=== PATIENT | female | born 1990 | race Caucasian/White ===

== ENCOUNTER 2016-11-11 17:27 | Observation (INO) | payer OTHER ==
[~2016-11-11] VITALS: Ht 162.6 cm; Wt 65.8 kg
[~2016-11-11 17:27] MED LIST: BIRTH CONTROL PILL PO; DOCU100C37 PO; IBUP-1780 PO; OXYC-465 PO; PNV1TABL9 PO; SULF1TAB38
--- OUTSIDE RECORDS SUMMARY | 2016-11-11 17:30 | XMS REPORT | Continuity of Care Document ---
Author Author [facility] Organization [facility] Address Unknown Phone Unavailable Support Name Relationship Address Phone DORADOJIMENA APRN Caregiver [facility] [address] [place] [address] ELE VILLANUEVA MD Caregiver [address] [place] [address] CHRISTINE KRISHNAMURTHY Next Of Kin [address] [place] [address] Insurance Providers Payer Name Policy Number Subscriber Name Relationship UMR [id number] Erika Krishnamurthy Self / Same As Patient Advance Directives Directive Response Recorded Date/Time Advance Directives No 09/24/16 10:00am Organ Donor Yes 09/24/16 10:00am Resuscitation Status Full Code 09/24/16 10:00am Chief Complaint and Reason for Visit Chief Complaint Chest Pain Reason for Visit [id number] Problems Active Problems Medical Problem Onset Date Status Pleuritic chest pain Unknown Acute TIUP - IAL Unknown Acute Medications Current Home Medications Medication Dose Units Route Directions Days/Qty Instructions Start Date Pnv Cmb#21/Iron/Folic Acid 1 Each 1 Each Oral Daily 09/20/16 Ibuprofen 800 Mg 800 Mg Oral Every 6 Hours 60 09/21/16 Oxycodone Hcl/Acetaminophen 1 Each 1-2 Tab Oral Every 4HRS as needed for Pain 60 09/21/16 Docusate Sodium 100 Mg 100 Mg Oral Twice A Day 60 09/21/16 Past Home Medications Medication Directions Ordered Status Trimethoprim/Sulfamethoxazole 1 Tab Tablet, 06/03/08 Discontinued [ Control Pill] , Oral Daily 10/07/10 Discontinued Social History Social History Problem Response Recorded Date/Time Alcohol Use Denies Use 09/24/2016 10:00am Recreational Drug Use No 09/24/2016 10:00am Recent Foreign Travel No 09/24/2016 10:00am Recent Infectious Disease Exposure No 09/24/2016 10:00am Hospitalization with Isolation Denies 09/24/2016 10:00am Sexually Transmitted Disease No 09/24/2016 10:00am Smoking Status Former Smoker 09/24/2016 10:00am Type Used Cigarettes 09/22/2016 6:49pm Recent Hopitalizations Y CHILD 09/24/2016 10:00am Sexually Transmitted Disease No 09/24/2016 10:00am Hospitalization with Isolation Denies 09/24/2016 10:00am Hx Sexually Transmitted Disorders No 10/08/2010 6:15am Query Response Start Date Stop Date Smoking Status Former Smoker Hospital Discharge Instructions No hospital discharge instructions. Plan of Care Discharge Date 09/24/16 12:05pm Disposition 01 HOME, SELF-CARE Condition at Discharge Stable Instructions/Education Provided Pleuritic Chest Pain (DC) Prescriptions See Medication Section Additional Instructions/Education 1. Follow-up with your regular doctor later this week or next week 2. Ibuprofen as needed for pain 3. Return to ER for any worsening or other concerns All discharge instructions reviewed with patient and/or family. Voiced understanding. Functional Status No functional status results. Allergies, Adverse Reactions, Alerts Allergen Type Severity Reaction Status Last Updated NKANo Known Allergies Allergy Mild Active 06/03/08 Immunizations Name Given Type DTaP-Tetanus, Dipth, Pertuss P/F (Boostrix) 09/22/16 Administered FLU TRIvalent 5 years - Adult 09/20/16 Administered Measles/Mumps/Rubella Vaccine Live 09/22/16 Administered Vital Signs Acute Vital Signs Vital Response Date/Time Temperature (Fahrenheit) 97.8 degrees F (97.6 - 99.5) 09/24/2016 10:00am Temperature (Calculated Celsius) 36.98660 degrees C (36.4 - 37.5) 09/24/2016 10:00am Temperature Source Tympanic 09/21/2016 9:53pm Pulse Rate (adult) 68 bpm (60 - 90) 09/24/2016 11:33am Respiratory Rate 18 bpm (12 - 24) 09/24/2016 11:33am O2 Sat by Pulse Oximetry 99 % (88 - 100) 09/24/2016 11:33am Blood Pressure 124/85 mm Hg 09/24/2016 11:33am Blood Pressure Mean 111 mm Hg 09/24/2016 10:00am Pain Numeric Pain Scale 1 09/24/2016 11:33am Height (Feet) 5 feet 09/24/2016 10:00am Height (Inches) 5 inches 09/24/2016 10:00am Height (Calculated Centimeters) 165.286614 cm 09/24/2016 10:00am Weight (Pounds) 140 pounds 09/24/2016 10:00am Weight (Ounces) 0.4 oz 09/20/2016 6:23am Weight (Calculated Grams) 19470.82 gm 09/20/2016 6:23am Weight (Calculated Kilograms) 63.807441 kilograms 09/24/2016 10:00am Calculated BMI 29.7 09/20/2016 6:23am Capillary Refill Capillary Refill Less Than 3 Seconds 09/24/2016 10:00am Capillary Refill Capillary Refill Less Than 3 Seconds 09/24/2016 10:00am Results Laboratory Results Test Name Result Units Flags Reference Collection Date/Time Result Date/ Time Comments White Blood Count 10.7 10^3/uL 4.3-11.0 09/20/2016 6:50am 09/20/2016 7: 04am Red Blood Count 4.19 10^6/uL L 4.35-5.85 09/20/2016 6:50am 09/20/2016 7: 04am Hemoglobin 12.6 G/DL 11.5-16.0 09/20/2016 6:50am 09/20/2016 7:04am Hematocrit 37 % 35-52 09/20/2016 6:50am 09/20/2016 7:04am Mean Corpuscular Volume 88 FL 80-99 09/20/2016 6:50am 09/20/2016 7: 04am Mean Corpuscular Hemoglobin 30 PG 25-34 09/20/2016 6:50am 09/20/2016 7: 04am Mean Corpuscular Hemoglobin Concent 34 G/DL 32-36 09/20/2016 6:50am 12/2015 7:04am Red Cell Distribution Width 13.6 % 10.0-14.5 09/20/2016 6:50am 2015 7:04am Platelet Count 175 10^3/uL 130-400 09/20/2016 6:50am 09/20/2016 7:04am Mean Platelet Volume 9.9 FL 7.4-10.4 09/20/2016 6:50am 09/20/2016 7: 04am Neutrophils (%) (Auto) 82 % H 42-75 09/20/2016 6:50am 09/20/2016 7:04am Lymphocytes (%) (Auto) 11 % L 12-44 09/20/2016 6:50am 09/20/2016 7:04am Monocytes (%) (Auto) 6 % 0-12 09/20/2016 6:50am 09/20/2016 7:04am Eosinophils (%) (Auto) 0 % 0-10 09/20/2016 6:50am 09/20/2016 7:04am Basophils (%) (Auto) 0 % 0-10 09/20/2016 6:50am 09/20/2016 7:04am Neutrophils # (Auto) 8.8 X 10^3 H 1.8-7.8 09/20/2016 6:50am 09/20/2016 7: 04am Lymphocytes # (Auto) 1.2 X 10^3 1.0-4.0 09/20/2016 6:50am 09/20/2016 7: 04am Monocytes # (Auto) 0.6 X 10^3 0.0-1.0 09/20/2016 6:50am 09/20/2016 7: 04am Eosinophils # (Auto) 0.0 10^3/uL 0.0-0.3 09/20/2016 6:50am 09/20/2016 7 :04am Basophils # (Auto) 0.0 10^3/uL 0.0-0.1 09/20/2016 6:50am 09/20/2016 7: 04am Pending Laboratory Results Test Name Collection Date/Time Procedures Procedure Status Date Provider(s) DELIVERY OF PRODUCTS OF CONCEPTION, EXTERNAL APPROACH Completed 09/20/16 SILAS MELO MD DIVISION OF FEMALE PERINEUM, EXTERNAL APPROACH Completed 09/20/16 SILAS MELO MD Tracing only of electrocardiogram Active 09/24/16 ELE VILLANUEVA MD Encounters Encounter Location Arrival/Admit Date Discharge/Depart Date Attending Provider Departed Emergency Room [facility] 09/24/16 10:02am 05/03 12:05pm JIMENA DORADO APRN Discharged Inpatient [facility] 09/20/16 6:39am 4:15pm SILAS MELO MD Recent Diagnosis
[2016-11-11] MEDS ORDERED: D5 LR IV SOLUTION 1,000 ML IV ONE (17:43)
[2016-11-11] MEDS ORDERED: BUTORPHANOL INJ 2 MG/ML (STADOL) VIAL IV PRN (18:00)
--- NOTE | 2016-11-11 18:04 | History & Physical ---
History and Physical this patient is a 26-year-old white female who is several half weeks . She has been breast-feeding exclusively. About 1 week ago she began experiencing some discomfort in her left breast, by the weekend that had progressed to a fairly moderate pain and she was seen in the urgent care clinic. She was diagnosed with a mastitis and treated with azithromycin. Her pain and symptoms have progressed plan. She has been unable to keep down pain medication. He called my office yesterday and I changed her from the azithromycin to dicloxacillin 500 mg 4 times a day. Overnight her pain has worsened. She is unable to breast-feed. She is unable to pump. He is almost unable to walk due to her left breast pain. she was seen in my clinic this afternoon. He was found to have a fairly diffuse left breast mastitis. There was no clear evidence of an abscess. Limited ultrasound my office showed no abscess pocket. Culture of the breast discharge was obtained. Patient is now been admitted for observation for IV pain medication IV fluids and IV antibiotics and supportive care. Plan is to try to decompress the engorgement of the left breast, find a pain medication she can tolerate orally, bring her symptoms under control and then discharge her home for outpatient management allergies are none Medications are dicloxacillin 500 mg 4 times a day started yesterday Percocet when necessary Motrin when necessary past medical history, past surgical history, obstetric history, family histories and social histories are per her recent antepartum record HEENT exam is normal. Patient does appear uncomfortable. Neck is supple no lymphadenopathy no thyromegaly Breast exam shows a tense engorged left breast with diffuse cellulitis particularly from the or to 9 or 10 o'clock position. There is no palpable abscess. There is some induration and diffuse erythema across the area described. There is minimal discharge from the nipple. The breast is fairly markedly tender to touch or palpation Abdomen is benign Extremities show no clubbing or cyanosis. There is no Homans sign lab is pending Assessment and plan severe left mastitis with symptoms progressing in spite of antibiotics. This patient's presentation would be concerning for an MRSA mastitis patient has been started on vancomycin 30 mg/kg per day divided into 3 doses. We will also prescribe IV fluids, IV analgesics, anti-nausea medicine as necessary, and supportive care. We recommend bumping her nursing to decompress the breast as well. severe left mastitis Allergies and Home Medications Allergies Coded Allergies: NKANo Known Allergies (Verified Allergy, Mild, 06/03/08) Home Medications Docusate Sodium 100 Mg Capsule #60 100 MG PO BID Prescribed by: SILAS EAST on 09/21/16 09 Ibuprofen 800 Mg Tablet #60 800 MG PO Q6H Prescribed by: SILAS EAST on 09/21/16 0945 Oxycodone HCl/Acetaminophen 1 Each Tablet #60 1-2 TAB PO Q4H PRN PRN PAIN Prescribed by: SILAS EAST on 09/21/16 0945 Pnv Cmb#21/Iron/Folic Acid 1 Each Tablet 1 EACH PO DAILY (Reported) SILAS MELO MD Nov 11, 2016 6:04 pm
[2016-11-11] MEDS: D5 LR IV SOLUTION 1,000 ML IV SCH (18:10)
[2016-11-11 18:15] VITALS: BP 128/86
[2016-11-11 18:24] LABS: BASOPHILS % (AUTO) 0 % (0-10); EOSINOPHILS # (AUTO) 0.3 10^3/uL (0.0-0.3); EOSINOPHILS % (AUTO) 2 % (0-10); LYMPHOCYTES # (AUTO) 2.4 X 10^3 (1.0-4.0); LYMPHOCYTES % (AUTO) 14 % (12-44); MEAN CORPUSCULAR HEMOGLOBIN 29 PG (25-34); MEAN CORPUSCULAR HGB CONC 34 G/DL (32-36); MEAN CORPUSCULAR VOLUME 87 FL (80-99); MONOCYTES # (AUTO) 1.3 X 10^3 (0.0-1.0); MONOCYTES % (AUTO) 8 % (0-12); NEUTROPHILS # (AUTO) 12.9 X 10^3 (1.8-7.8); NEUTROPHILS % (AUTO) 76 % (42-75); PLATELET COUNT 279 10^3/uL (130-400); RED BLOOD COUNT 4.19 10^6/uL (4.35-5.85); RED CELL DISTRIBUTION WIDTH 12.6 % (10.0-14.5); WHITE BLOOD COUNT 16.9 10^3/uL (4.3-11.0)
[2016-11-11] MEDS ORDERED: VANCOMYCIN 1250 MG/NS 250 ML IVPB IV NR ×2 (18:30)
[2016-11-11 18:39] LABS: BAND NEUTROPHILS 8 %; LYMPHOCYTES % (MANUAL) 13 %; NEUTROPHILS % (MANUAL) 69 %
[2016-11-11 18:40] LABS: BASOPHILS % (MANUAL) 0 %; EOSINOPHILS % (MANUAL) 1 %
[2016-11-11 19:10] LABS: ANION GAP 13 MMOL/L (5-14); BLOOD UREA NITROGEN 7 MG/DL (7-18); BUN/CREATININE RATIO 10; CARBON DIOXIDE 19 MMOL/L (21-32); CHLORIDE 108 MMOL/L (98-107); CREATININE SERUM 0.72 MG/DL (0.60-1.30); GFR ESTIMATED > 60; GLUCOSE 72 MG/DL (70-105); POTASSIUM 3.5 MMOL/L (3.6-5.0); SODIUM 140 MMOL/L (135-145)
[2016-11-11] MEDS ORDERED: DICL500C PO (19:18)
[2016-11-11] MEDS ORDERED: LECI400C PO (19:18)
[2016-11-11 19:35] VITALS: BP 145/90
[2016-11-11] MEDS ORDERED: diphenhydrAMINE 50 MG/ML INJ (BENADRYL) IVP ONE (19:45)
[2016-11-11 19:50] VITALS: BP 144/91
[2016-11-11] MEDS ORDERED: FLU TRIvalent (5 YOA+) 2016-17 (AFLURIA) 0.5 ML IM ONE (20:15)
[2016-11-11] MEDS: KETOROLAC 30 MG/ML VIAL IVP PRN (20:37)
[2016-11-11] MEDS ORDERED: VANCOMYCIN INJECTION 0.1 MG in NS (IVPB) 250 ML IV SCH ×4 (22:00)
[2016-11-11] MEDS: METOCLOPRAMIDE 10 MG (REGLAN) TAB PO SCH (23:01)
[2016-11-11] MEDS: APAP 300 MG/CODEINE 30 MG (TYLENOL #3) TAB PO PRN (23:01)
[2016-11-12] VITALS (7 sets, daily range): BP systolic 107–133; BP diastolic 68–92
[2016-11-12] MEDS: D5 LR IV SOLUTION 1,000 ML IV SCH ×3 (01:30→18:40)
[2016-11-12] MEDS: VANCOMYCIN 750 MG/NS 250 ML IVPB IV SCH ×4 (02:45→11:23)
[2016-11-12] MEDS: APAP 300 MG/CODEINE 30 MG (TYLENOL #3) TAB PO PRN ×3 (04:41→18:46)
[2016-11-12] MEDS: METOCLOPRAMIDE 10 MG (REGLAN) TAB PO SCH ×4 (05:30→19:00)
[2016-11-12] MEDS: KETOROLAC 30 MG/ML VIAL IVP PRN ×3 (07:23→21:51)
--- NOTE | 2016-11-12 07:39 | Progress Note-Standard ---
Standard Progress Note Progress Notes/Assess & Plan Progress/Assessment & Plan patient complains of persistent pain in left breast that is generally well controlled with pain medication. She continues to pump and has had an outside labs and a half each time she pumps. Patient denies nausea. Laboratory Tests Test 11/11/16 18:05 11/11/16 18:46 Range/Units Band Neutrophils 8 % Basophils # (Auto) 0.0 0.0-0.1 10^3/uL Basophils % (Manual) 0 % Basophils (%) (Auto) 0 0-10 % Blood Morphology Comment NORMAL Eosinophils # (Auto) 0.3 0.0-0.3 10^3/uL Eosinophils % (Manual) 1 % Eosinophils (%) (Auto) 2 0-10 % Hematocrit 36 35-52 % Hemoglobin 12.3 11.5-16.0 G/DL Lymphocytes # (Auto) 2.4 1.0-4.0 X 10^3 Lymphocytes % (Manual) 13 % Lymphocytes (%) (Auto) 14 12-44 % Mean Corpuscular Hemoglobin 29 25-34 PG Mean Corpuscular Hemoglobin Concent 34 32-36 G/DL Mean Corpuscular Volume 87 80-99 FL Mean Platelet Volume 9.0 7.4-10.4 FL Monocytes # (Auto) 1.3 H 0.0-1.0 X 10^3 Monocytes % (Manual) 9 % Monocytes (%) (Auto) 8 0-12 % Neutrophils # (Auto) 12.9 H 1.8-7.8 X 10^3 Neutrophils % (Manual) 69 % Neutrophils (%) (Auto) 76 H 42-75 % Platelet Count 279 130-400 10^3/uL Red Blood Count 4.19 L 4.35-5.85 10^6/uL Red Cell Distribution Width 12.6 10.0-14.5 % White Blood Count 16.9 H 4.3-11.0 10^3/uL Anion Gap 13 5-14 MMOL/L BUN/Creatinine Ratio 10 Blood Urea Nitrogen 7 7-18 MG/DL Calcium Level 9.0 8.5-10.1 MG/DL Carbon Dioxide Level 19 L 21-32 MMOL/L Chloride Level 108 H 98-107 MMOL/L Creatinine 0.72 0.60-1.30 MG/DL Estimat Glomerular Filtration Rate > 60 Glucose Level 72 70-105 MG/DL Potassium Level 3.5 L 3.6-5.0 MMOL/L Sodium Level 140 135-145 MMOL/L Admit labs showed white count 16.9 Physical exam is essentially stable from admission. The left breast seems to have notably less erythema but is still edematous and somewhat indurated Assessment and plan left mastitis on vancomycin . We'll obtain an ultrasound of the left breast for evaluation for an abscess. If her temperature spikes 201 again we'll go ahead and obtain blood cultures. We'll recheck her CBC at noon. Culture from the left breast [facility] and that will be followed up SILAS MELO MD Nov 12, 2016 7:39 am
--- NOTE | 2016-11-12 09:17 | Diagnostic Imaging Report ---
EXAMINATION: Ultrasound of the left breast. INDICATION: Left breast pain. COMPARISON: There are no prior studies available for comparison. PERSONAL HISTORY: Reportedly, there is clinical concern regarding an abscess. FINDINGS: On this exam, there is indeed a 5.5 x 4.2 x 5.4 cm hypoechoic area with internal echoes in the 6 o'clock position of the left breast. This appearance does suggest an abscess. No other abnormality is identified. IMPRESSION: 1. There is a sizable 5.5 x 4.2 x 5.4 cm abscess in the 6 o'clock position of the left breast. 2. These results were called to Dr. Osmel Wick. Dictated by: Dictated on workstation # [id number]
[2016-11-12] MEDS ORDERED: LIDOCAINE 1% INJ 20 ML (XYLOCAINE) VIAL ONE (09:39)
[2016-11-12] MEDS ORDERED: fentaNYL INJECTION 100 MCG/2 ML AMP ONE (10:10)
[2016-11-12 10:15] LABS: INR 1.2 (0.8-1.4); PROTHROMBIN TIME PATIENT 14.7 SEC (12.2-14.7)
[2016-11-12] MEDS ORDERED: oxyCODONE/APAP 10/325MG (PERCOCET 10) TABLET PO PRN (11:45)
[2016-11-12] MEDS ORDERED: LIDOCAINE 1% INJ 20 ML (XYLOCAINE) VIAL INJ ONE (11:45)
[2016-11-12] MEDS ORDERED: fentaNYL INJECTION 100 MCG/2 ML AMP IVP ONE (11:45)
[2016-11-12 12:08] LABS: BASOPHILS % (AUTO) 0 % (0-10); EOSINOPHILS # (AUTO) 0.2 10^3/uL (0.0-0.3); EOSINOPHILS % (AUTO) 2 % (0-10); LYMPHOCYTES # (AUTO) 1.5 X 10^3 (1.0-4.0); LYMPHOCYTES % (AUTO) 12 % (12-44); MEAN CORPUSCULAR HEMOGLOBIN 30 PG (25-34); MEAN CORPUSCULAR HGB CONC 34 G/DL (32-36); MEAN CORPUSCULAR VOLUME 88 FL (80-99); MEAN PLATELET VOLUME 8.5 FL (7.4-10.4); MONOCYTES # (AUTO) 1.1 X 10^3 (0.0-1.0); MONOCYTES % (AUTO) 9 % (0-12); NEUTROPHILS # (AUTO) 9.6 X 10^3 (1.8-7.8); NEUTROPHILS % (AUTO) 77 % (42-75); PLATELET COUNT 251 10^3/uL (130-400); RED BLOOD COUNT 3.97 10^6/uL (4.35-5.85); RED CELL DISTRIBUTION WIDTH 12.8 % (10.0-14.5); WHITE BLOOD COUNT 12.5 10^3/uL (4.3-11.0)
--- NOTE | 2016-11-12 16:14 | Progress Note-Standard ---
Standard Progress Note Progress Notes/Assess & Plan Progress/Assessment & Plan patient complains of persistent pain in left breast that is generally well controlled with pain medication. She continues to pump and has had an outside labs and a half each time she pumps. Patient denies nausea. Laboratory Tests Test 11/11/16 18:05 11/11/16 18:46 Range/Units Band Neutrophils 8 % Basophils # (Auto) 0.0 0.0-0.1 10^3/uL Basophils % (Manual) 0 % Basophils (%) (Auto) 0 0-10 % Blood Morphology Comment NORMAL Eosinophils # (Auto) 0.3 0.0-0.3 10^3/uL Eosinophils % (Manual) 1 % Eosinophils (%) (Auto) 2 0-10 % Hematocrit 36 35-52 % Hemoglobin 12.3 11.5-16.0 G/DL Lymphocytes # (Auto) 2.4 1.0-4.0 X 10^3 Lymphocytes % (Manual) 13 % Lymphocytes (%) (Auto) 14 12-44 % Mean Corpuscular Hemoglobin 29 25-34 PG Mean Corpuscular Hemoglobin Concent 34 32-36 G/DL Mean Corpuscular Volume 87 80-99 FL Mean Platelet Volume 9.0 7.4-10.4 FL Monocytes # (Auto) 1.3 H 0.0-1.0 X 10^3 Monocytes % (Manual) 9 % Monocytes (%) (Auto) 8 0-12 % Neutrophils # (Auto) 12.9 H 1.8-7.8 X 10^3 Neutrophils % (Manual) 69 % Neutrophils (%) (Auto) 76 H 42-75 % Platelet Count 279 130-400 10^3/uL Red Blood Count 4.19 L 4.35-5.85 10^6/uL Red Cell Distribution Width 12.6 10.0-14.5 % White Blood Count 16.9 H 4.3-11.0 10^3/uL Anion Gap 13 5-14 MMOL/L BUN/Creatinine Ratio 10 Blood Urea Nitrogen 7 7-18 MG/DL Calcium Level 9.0 8.5-10.1 MG/DL Carbon Dioxide Level 19 L 21-32 MMOL/L Chloride Level 108 H 98-107 MMOL/L Creatinine 0.72 0.60-1.30 MG/DL Estimat Glomerular Filtration Rate > 60 Glucose Level 72 70-105 MG/DL Potassium Level 3.5 L 3.6-5.0 MMOL/L Sodium Level 140 135-145 MMOL/L Admit labs showed white count 16.9 Physical exam is essentially stable from admission. The left breast seems to have notably less erythema but is still edematous and somewhat indurated Assessment and plan left mastitis on vancomycin . We'll obtain an ultrasound of the left breast for evaluation for an abscess. If her temperature spikes 201 again we'll go ahead and obtain blood cultures. We'll recheck her CBC at noon. Culture from the left breast with attaining clinic and that will be followed up Laboratory Tests 11/11/16 18:05 11/11/16 18:46 11/12/16 12:01 Vital Signs Date Time Temp Pulse Resp B/P Pulse Ox O2 Delivery O2 Flow Rate FiO2 11/12/16 07:35 101.3 100 18 131/83 98 Room Air 11/12/16 05:36 99.8 93 16 126/78 Room Air 11/12/16 04:41 100.9 11/12/16 04:41 100.9 11/12/16 02:46 99.3 11/12/16 00:30 98.8 88 18 107/68 Room Air 11/11/16 22:20 99.4 11/11/16 21:30 100.7 11/11/16 21:11 100.7 11/11/16 21:07 100.7 11/11/16 20:37 101.0 11/11/16 20:30 101.0 11/11/16 19:50 100.0 114 20 144/91 99 Room Air 11/11/16 19:35 100.6 125 20 145/90 100 Room Air 11/11/16 18:15 100.4 97 18 128/86 100 Room Air I & O 11/12/16 07:00 Intake Total 1260 ml Balance 1260 ml Continue current mgmt as patient is symptomatically improved. SILAS MELO MD Nov 12, 2016 4:13 pm
[2016-11-12] MEDS ORDERED: TROUGH ORDER-PHARMACY XX NR (18:00)
[2016-11-12] MEDS: VANCOMYCIN 1 GM/NS 250 ML IVPB IV SCH ×2 (19:52)
[2016-11-13] MEDS: APAP 300 MG/CODEINE 30 MG (TYLENOL #3) TAB PO PRN ×4 (00:17→13:54)
[2016-11-13] MEDS: D5 LR IV SOLUTION 1,000 ML IV SCH ×3 (02:37→11:44)
[2016-11-13] MEDS: KETOROLAC 30 MG/ML VIAL IVP PRN ×3 (03:25→16:51)
[2016-11-13] MEDS: VANCOMYCIN 1 GM/NS 250 ML IVPB IV SCH ×4 (03:26→11:37)
[2016-11-13 04:06] VITALS: BP 126/79
[2016-11-13] MEDS: METOCLOPRAMIDE 10 MG (REGLAN) TAB PO SCH ×2 (04:13→07:41)
--- NOTE | 2016-11-13 07:40 | Progress Note-Standard ---
Standard Progress Note Progress Notes/Assess & Plan Progress/Assessment & Plan patient complains of persistent pain in left breast that is generally well controlled with pain medication. She continues to pump and has had an outside labs and a half each time she pumps. Patient denies nausea. Laboratory Tests Test 11/11/16 18:05 11/11/16 18:46 Range/Units Band Neutrophils 8 % Basophils # (Auto) 0.0 0.0-0.1 10^3/uL Basophils % (Manual) 0 % Basophils (%) (Auto) 0 0-10 % Blood Morphology Comment NORMAL Eosinophils # (Auto) 0.3 0.0-0.3 10^3/uL Eosinophils % (Manual) 1 % Eosinophils (%) (Auto) 2 0-10 % Hematocrit 36 35-52 % Hemoglobin 12.3 11.5-16.0 G/DL Lymphocytes # (Auto) 2.4 1.0-4.0 X 10^3 Lymphocytes % (Manual) 13 % Lymphocytes (%) (Auto) 14 12-44 % Mean Corpuscular Hemoglobin 29 25-34 PG Mean Corpuscular Hemoglobin Concent 34 32-36 G/DL Mean Corpuscular Volume 87 80-99 FL Mean Platelet Volume 9.0 7.4-10.4 FL Monocytes # (Auto) 1.3 H 0.0-1.0 X 10^3 Monocytes % (Manual) 9 % Monocytes (%) (Auto) 8 0-12 % Neutrophils # (Auto) 12.9 H 1.8-7.8 X 10^3 Neutrophils % (Manual) 69 % Neutrophils (%) (Auto) 76 H 42-75 % Platelet Count 279 130-400 10^3/uL Red Blood Count 4.19 L 4.35-5.85 10^6/uL Red Cell Distribution Width 12.6 10.0-14.5 % White Blood Count 16.9 H 4.3-11.0 10^3/uL Anion Gap 13 5-14 MMOL/L BUN/Creatinine Ratio 10 Blood Urea Nitrogen 7 7-18 MG/DL Calcium Level 9.0 8.5-10.1 MG/DL Carbon Dioxide Level 19 L 21-32 MMOL/L Chloride Level 108 H 98-107 MMOL/L Creatinine 0.72 0.60-1.30 MG/DL Estimat Glomerular Filtration Rate > 60 Glucose Level 72 70-105 MG/DL Potassium Level 3.5 L 3.6-5.0 MMOL/L Sodium Level 140 135-145 MMOL/L Admit labs showed white count 16.9 Physical exam is essentially stable from admission. The left breast seems to have notably less erythema but is still edematous and somewhat indurated Assessment and plan left mastitis on vancomycin . We'll obtain an ultrasound of the left breast for evaluation for an abscess. If her temperature spikes 201 again we'll go ahead and obtain blood cultures. We'll recheck her CBC at noon. Culture from the left breast with attaining clinic and that will be followed up Laboratory Tests 11/11/16 18:05 11/11/16 18:46 11/12/16 12:01 Vital Signs Date Time Temp Pulse Resp B/P Pulse Ox O2 Delivery O2 Flow Rate FiO2 11/12/16 07:35 101.3 100 18 131/83 98 Room Air 11/12/16 05:36 99.8 93 16 126/78 Room Air 11/12/16 04:41 100.9 11/12/16 04:41 100.9 11/12/16 02:46 99.3 11/12/16 00:30 98.8 88 18 107/68 Room Air 11/11/16 22:20 99.4 11/11/16 21:30 100.7 11/11/16 21:11 100.7 11/11/16 21:07 100.7 11/11/16 20:37 101.0 11/11/16 20:30 101.0 11/11/16 19:50 100.0 114 20 144/91 99 Room Air 11/11/16 19:35 100.6 125 20 145/90 100 Room Air 11/11/16 18:15 100.4 97 18 128/86 100 Room Air I & O 11/12/16 07:00 Intake Total 1260 ml Balance 1260 ml Continue current mgmt as patient is symptomatically improved. November 13, 2016 Patient is generally without complaint. Pain is well controlled with oral medication. Drain output from the left breast has dramatically decreased. Patient is able to pop and no express milk from the left breast to minimize engorgement. Vital Signs Date Time Temp Pulse Resp B/P Pulse Ox O2 Delivery O2 Flow Rate FiO2 11/13/16 04:06 98.6 86 18 126/79 98 Room Air 11/12/16 23:18 98.9 78 18 119/76 97 Room Air 11/12/16 20:00 99.6 82 18 133/92 99 Room Air 11/12/16 16:00 99.4 79 18 120/80 98 Room Air 11/12/16 14:15 99.8 11/12/16 11:30 100.0 91 18 131/80 98 Room Air I & O 11/13/16 07:00 Intake Total 3350 ml Output Total 85 ml Balance 3265 ml Patient is afebrile now for the past 24 hours Left breast erythema has decreased somewhat. left breast tenderness is markedly decreased. assessment and plan left breast mastitis with abscess. Abscess had been drained via catheter placed by radiology. Patient is symptomatically improved. Cultures of the abscess are pending. We will continue the vancomycin through the day and continue supportive care. With continued improvement through the day we can consider discharge this evening Final Diagnosis left breast mastitis with abscess SILAS MELO MD Nov 13, 2016 07:40
[2016-11-13 07:45] VITALS: BP 127/84
--- NOTE | 2016-11-13 09:37 | Diagnostic Imaging Report ---
EXAMINATION: Ultrasound left breast limited. INDICATION: Abscess The previous left breast ultrasound exam performed on 11/12/16 noted a 5.5 x 4.2 x 5.4 CM. Hypoechoic area with internal echoes in the 6 o'clock position of the left breast. This finding was felt to represent an abscess. Subsequently an ultrasound-guided percutaneous drainage catheter was inserted into the abscess catheter. On this exam, the area of abnormal echogenicity in the 6 o'clock position left breast seen previously is again visualized although it has decreased in size. This area now measures 2.9 x 3.6 x 3.4 CM. There appears to be a little fluid still present in this area and this area of abnormal echogenicity may be related to debris and/or infected tissue alone. The drainage catheter is still evident. IMPRESSION: 1. The abscess in the 6 clock position left breast has decreased in size. There appears to be very little fluid still present within the abscess. The drainage catheter is still visualized. 2. These results were discussed with Dr. Wick. Dictated by: Dictated on workstation # [id number]
--- NOTE | 2016-11-13 10:01 | Diagnostic Imaging Report ---
EXAM: Ultrasound guided percutaneous transcatheter insertion. INDICATION: Left breast abscess. FINDINGS: The ultrasound exam performed earlier today indicated a 5-6 cm abscess in the 6 o'clock position of the left breast. Following aseptic preparation of the skin and administration of local anesthesia, a percutaneous drainage catheter was inserted into the abscess cavity using ultrasound guidance. Approximately 30-40 cc of thin milky pus was removed. The catheter was secured and suction was applied. The patient tolerated the procedure well. IMPRESSION: 1. There has been successful insertion of a percutaneous drainage catheter into the abscess cavity in the 6 o'clock position of the left breast. 2. These results were were called to Dr. Wick's office by Dr. Vogel at the time of dictation. Dictated by: Dictated on workstation # [id number]
[2016-11-13 11:45] VITALS: BP 117/76
--- NOTE | 2016-11-13 13:00 | Progress Note-Standard ---
Standard Progress Note Progress Notes/Assess & Plan Progress/Assessment & Plan patient complains of persistent pain in left breast that is generally well controlled with pain medication. She continues to pump and has had an outside labs and a half each time she pumps. Patient denies nausea. Laboratory Tests Test 11/11/16 18:05 11/11/16 18:46 Range/Units Band Neutrophils 8 % Basophils # (Auto) 0.0 0.0-0.1 10^3/uL Basophils % (Manual) 0 % Basophils (%) (Auto) 0 0-10 % Blood Morphology Comment NORMAL Eosinophils # (Auto) 0.3 0.0-0.3 10^3/uL Eosinophils % (Manual) 1 % Eosinophils (%) (Auto) 2 0-10 % Hematocrit 36 35-52 % Hemoglobin 12.3 11.5-16.0 G/DL Lymphocytes # (Auto) 2.4 1.0-4.0 X 10^3 Lymphocytes % (Manual) 13 % Lymphocytes (%) (Auto) 14 12-44 % Mean Corpuscular Hemoglobin 29 25-34 PG Mean Corpuscular Hemoglobin Concent 34 32-36 G/DL Mean Corpuscular Volume 87 80-99 FL Mean Platelet Volume 9.0 7.4-10.4 FL Monocytes # (Auto) 1.3 H 0.0-1.0 X 10^3 Monocytes % (Manual) 9 % Monocytes (%) (Auto) 8 0-12 % Neutrophils # (Auto) 12.9 H 1.8-7.8 X 10^3 Neutrophils % (Manual) 69 % Neutrophils (%) (Auto) 76 H 42-75 % Platelet Count 279 130-400 10^3/uL Red Blood Count 4.19 L 4.35-5.85 10^6/uL Red Cell Distribution Width 12.6 10.0-14.5 % White Blood Count 16.9 H 4.3-11.0 10^3/uL Anion Gap 13 5-14 MMOL/L BUN/Creatinine Ratio 10 Blood Urea Nitrogen 7 7-18 MG/DL Calcium Level 9.0 8.5-10.1 MG/DL Carbon Dioxide Level 19 L 21-32 MMOL/L Chloride Level 108 H 98-107 MMOL/L Creatinine 0.72 0.60-1.30 MG/DL Estimat Glomerular Filtration Rate > 60 Glucose Level 72 70-105 MG/DL Potassium Level 3.5 L 3.6-5.0 MMOL/L Sodium Level 140 135-145 MMOL/L Admit labs showed white count 16.9 Physical exam is essentially stable from admission. The left breast seems to have notably less erythema but is still edematous and somewhat indurated Assessment and plan left mastitis on vancomycin . We'll obtain an ultrasound of the left breast for evaluation for an abscess. If her temperature spikes 201 again we'll go ahead and obtain blood cultures. We'll recheck her CBC at noon. Culture from the left breast with attaining clinic and that will be followed up Laboratory Tests 11/11/16 18:05 11/11/16 18:46 11/12/16 12:01 Vital Signs Date Time Temp Pulse Resp B/P Pulse Ox O2 Delivery O2 Flow Rate FiO2 11/12/16 07:35 101.3 100 18 131/83 98 Room Air 11/12/16 05:36 99.8 93 16 126/78 Room Air 11/12/16 04:41 100.9 11/12/16 04:41 100.9 11/12/16 02:46 99.3 11/12/16 00:30 98.8 88 18 107/68 Room Air 11/11/16 22:20 99.4 11/11/16 21:30 100.7 11/11/16 21:11 100.7 11/11/16 21:07 100.7 11/11/16 20:37 101.0 11/11/16 20:30 101.0 11/11/16 19:50 100.0 114 20 144/91 99 Room Air 11/11/16 19:35 100.6 125 20 145/90 100 Room Air 11/11/16 18:15 100.4 97 18 128/86 100 Room Air I & O 11/12/16 07:00 Intake Total 1260 ml Balance 1260 ml Continue current mgmt as patient is symptomatically improved. November 13, 2016 Patient is generally without complaint. Pain is well controlled with oral medication. Drain output from the left breast has dramatically decreased. Patient is able to pop and no express milk from the left breast to minimize engorgement. Vital Signs Date Time Temp Pulse Resp B/P Pulse Ox O2 Delivery O2 Flow Rate FiO2 11/13/16 04:06 98.6 86 18 126/79 98 Room Air 11/12/16 23:18 98.9 78 18 119/76 97 Room Air 11/12/16 20:00 99.6 82 18 133/92 99 Room Air 11/12/16 16:00 99.4 79 18 120/80 98 Room Air 11/12/16 14:15 99.8 11/12/16 11:30 100.0 91 18 131/80 98 Room Air I & O 11/13/16 07:00 Intake Total 3350 ml Output Total 85 ml Balance 3265 ml Patient is afebrile now for the past 24 hours Left breast erythema has decreased somewhat. left breast tenderness is markedly decreased. assessment and plan left breast mastitis with abscess. Abscess had been drained via catheter placed by radiology. Patient is symptomatically improved. Cultures of the abscess are pending. We will continue the vancomycin through the day and continue supportive care. With continued improvement through the day we can consider discharge this evening 1300 Patient continues to improve and is requesting discharge home. She has remained afebrile. Her pain is markedly decreased. Vital signs are stable. Patient is afebrile. Physical exam is deferred. Assessment and plan hospital day number 3 with a left breast abscess / mastitis patient is improving and we will discharge home to continue her dicloxacillin 500 mg 4 times a day. we'll arrange follow-up for repeat ultrasound on Thursday and consideration for drain removal. Plan follow-up in my clinic in 1 week. Final Diagnosis left breast mastitis with abscess SILAS MELO MD Nov 13, 2016 1:00 pm
[2016-11-13] MEDS ORDERED: METO10TA3 PO (13:02)
[2016-11-13] MEDS ORDERED: ACET1TAB43 PO (13:02)
--- NOTE | 2016-11-13 13:04 | Discharge Instructions ---
Discharge Instructions Discharge Medications New, Converted or Re-Newed RX: RX on Chart Patient Instructions Patient Instructions: as directed Return to The Hospital For: as directed Activity & Diet Discharge Diet: No Restrictions Activity as Tolerated: No Orders-Post D/C & Referrals Follow Up Appt: Call to make follow up appt. for patient in 1 week for follow-up Activity: Rest for 24 hours, than as tolerated. Wound Care and drain care: As instructed per radiology Diet: As tolerated-Clear Liquids only if nauseated. May shower or tub bathe as desired. Patient to return to the clinic as soon as possible for: Temperature greater than 101F, Severe Pain, increasing Foul discharge from incision / drain. SILAS MELO MD Nov 13, 2016 1:04 pm
[2016-11-13 15:30] VITALS: BP 134/87
[2016-11-13] MEDS ORDERED: TROUGH ORDER-PHARMACY XX NR (18:00)
== END 2016-11-13 13:02 | disposition home or self-care (01) ==
LOC: WSo 17:27 → WS 17:45 → UNDOADMOB 17:48
PROVIDERS: ADMIT Obstetrics & Gynecology; ATTEND Obstetrics & Gynecology
DX: O91.22 Nonpurulent mastitis associated with the puerperium (principal)
CPT/HCPCS: 36415; 75989; 76641; 76642; 80048; 80202; 85007; 85025; 85027; 85610; 85730; 87040; 87070; 87075; 87077; 87186; 87205; 96361; 96374; 96375; 96376; 99211; G0378

== ENCOUNTER → 2016-11-17 | Outpatient (CLI) | payer OTHER ==
[~2016-11-17] MED LIST changes: +ACET1TAB43 PO; +DICL500C PO; +LECI400C PO; +METO10TA3 PO
--- OUTSIDE RECORDS SUMMARY | 2016-11-17 13:49 | XMS REPORT | Continuity of Care Document ---
Author Author [facility] Organization [facility] Address Unknown Phone Unavailable Care Team Providers Care Avionics Integration Engineer Name Role Phone SILAS WICK MD PCP Insurance Providers Payer Name Policy Number Subscriber Name Relationship UMR [id number] Erika Krishnamurthy Self / Same As Patient Advance Directives Directive Response Recorded Date/Time Advance Directives No 11/11/16 6:00pm Organ Donor Yes 11/11/16 6:00pm Resuscitation Status Full Code 11/11/16 6:00pm Problems Active Problems Medical Problem Onset Date Status Pleuritic chest pain Unknown Acute TIUP - IAL Unknown Acute Medications Current Home Medications Medication Dose Units Route Directions Days/Qty Instructions Start Date Pnv Cmb#21/Iron/Folic Acid 1 Each 1 Each Oral Daily 09/20/16 Dicloxacillin Sodium 500 Mg 500 Mg Oral 4 Times Daily 11/11/16 Lecithin, Soy 400 Mg 400 Mg Oral 11/11/16 Metoclopramide Hcl 10 Mg 10 Mg Oral Twice A Day 14 11/13/16 Acetaminophen With Codeine 1 Each 1-2 Tab Oral Give Every 4 Hrs On Schedule as needed for Moderate Pain 60 11/13/16 Past Home Medications Medication Directions Ordered Status Trimethoprim/Sulfamethoxazole 1 Tab Tablet, 06/03/08 Discontinued [ Control Pill] , Oral Daily 10/07/10 Discontinued Ibuprofen 800 Mg Tablet, 800 Mg Oral Every 6 Hours 09/21/16 Discontinued Oxycodone Hcl/Acetaminophen 1 Each Tablet, 1-2 Tab Oral Every 4HRS as needed for Pain 09/21/16 Discontinued Docusate Sodium 100 Mg Capsule, 100 Mg Oral Twice A Day 09/21/16 Discontinued Social History Social History Problem Response Recorded Date/Time Recent Foreign Travel No 11/11/2016 6:00pm Recent Infectious Disease Exposure No 11/11/2016 6:00pm Sexually Transmitted Disease No 09/24/2016 10:00am Smoking Status Never a Smoker 11/11/2016 6:00pm Type Used Cigarettes 09/22/2016 6:49pm Recent Hopitalizations Y CHILD 09/24/2016 10:00am Sexually Transmitted Disease No 09/24/2016 10:00am Hx Sexually Transmitted Disorders No 10/08/2010 6:15am Query Response Start Date Stop Date Smoking Status Never a Smoker Hospital Discharge Instructions Patient Instructions Physician Instructions New, Converted or Re-Newed RX: RX on Chart Patient Instructions: as directed Return to The Hospital For: as directed Discharge Diet: No Restrictions Activity as Tolerated: No Follow Up Appt: Call to make follow up appt. for patient in 1 week for follow-up Activity: Rest for 24 hours, than as tolerated. Wound Care and drain care: As instructed per radiology Diet: As tolerated-Clear Liquids only if nauseated. May shower or tub bathe as desired. Patient to return to the clinic as soon as possible for: Temperature greater than 101F, Severe Pain, increasing Foul discharge from incision / drain. Care Plan Patient Instructions:: as directed Plan of Care Discharge Date 11/13/16 5:20pm Disposition 01 HOME, SELF-CARE Instructions/Education Provided Abscess Drainage, Percutaneous (Fluoroscopic, Ultrasonic, or CT Guidance) Mastitis (DC) Prescriptions See Medication Section Referrals SILAS WICK MD (Unspecified) - 11/20/16 Address: [address] [phone] Reason(s) for Referral: Follow-Up Appointment with Dr. Wick: 11/20/16 at 10:15PM. (Unspecified) - 11/17/16 Reason(s) for Referral: Please report to registration Thursday11/17/16 for scheduled Ultrasound of the breast. Please arrive 15 minutes early for paperwork. Care Plan and Goals See Discharge Instructions Section Functional Status Query Response Date Recorded Patient Orientation Person Place Time Situation Normal For Age November 13, 2016 6:02pm Patient Orientation Person Place Time Situation Normal For Age November 13, 2016 6:02pm Allergies, Adverse Reactions, Alerts Allergen Type Severity Reaction Status Last Updated NKANo Known Allergies Allergy Mild Active 06/03/08 Immunizations Name Given Type FLU TRIvalent 5 years - Adult 11/12/16 Administered Vital Signs Acute Vital Signs Vital Response Date/Time Temperature (Fahrenheit) 98.6 degrees F (97.6 - 99.5) 11/13/2016 3:30pm Temperature (Calculated Celsius) 37.29160 degrees C (36.4 - 37.5) 11/13/2016 3:30pm Temperature Source Temporal 11/13/2016 3:30pm Pulse Rate (adult) 68 bpm (60 - 90) 11/13/2016 3:30pm Respiratory Rate 18 bpm (12 - 24) 11/13/2016 3:30pm O2 Sat by Pulse Oximetry 99 % (88 - 100) 11/13/2016 3:30pm Blood Pressure 134/87 mm Hg 11/13/2016 3:30pm Blood Pressure Mean 103 mm Hg 11/13/2016 3:30pm Pain Numeric Pain Scale 2 11/13/2016 4:51pm Height (Feet) 5 feet 11/11/2016 6:16pm Height (Inches) 4.00 inches 11/11/2016 6:16pm Height (Calculated Centimeters) 162.178791 cm 11/11/2016 6:16pm Weight (Pounds) 145 pounds 11/11/2016 6:16pm Weight (Ounces) 0.0 oz 11/11/2016 6:16pm Weight (Calculated Grams) 44413.89 gm 11/11/2016 6:16pm Weight (Calculated Kilograms) 65.780743 kilograms 11/11/2016 6:16pm Calculated BMI 24.9 11/11/2016 6:16pm Results Laboratory Results Test Name Result Units Flags Reference Collection Date/Time Result Date/ Time Comments White Blood Count 12.5 10^3/uL H 4.3-11.0 11/12/2016 12:01pm 11/12/2016 12:09pm Red Blood Count 3.97 10^6/uL L 4.35-5.85 11/12/2016 12:01pm 11/12/2016 12 :09pm Hemoglobin 11.7 G/DL 11.5-16.0 11/12/2016 12:01pm 11/12/2016 12:09pm Hematocrit 35 % 35-52 11/12/2016 12:01pm 11/12/2016 12:09pm Mean Corpuscular Volume 88 FL 80-99 11/12/2016 12:01pm 11/12/2016 12: 09pm Mean Corpuscular Hemoglobin 30 PG 25-34 11/12/2016 12:01pm 11/12/2016 12:09pm Mean Corpuscular Hemoglobin Concent 34 G/DL 32-36 11/12/2016 12:01pm 12:09pm Red Cell Distribution Width 12.8 % 10.0-14.5 11/12/2016 12:01pm 2016 12:09pm Platelet Count 251 10^3/uL 130-400 11/12/2016 12:01pm 11/12/2016 12: 09pm Mean Platelet Volume 8.5 FL 7.4-10.4 11/12/2016 12:01pm 11/12/2016 12: 09pm Neutrophils (%) (Auto) 77 % H 42-75 11/12/2016 12:01pm 11/12/2016 12: 09pm Lymphocytes (%) (Auto) 12 % 12-44 11/12/2016 12:01pm 11/12/2016 12: 09pm Monocytes (%) (Auto) 9 % 0-12 11/12/2016 12:01pm 11/12/2016 12:09pm Eosinophils (%) (Auto) 2 % 0-10 11/12/2016 12:01pm 11/12/2016 12:09pm Basophils (%) (Auto) 0 % 0-10 11/12/2016 12:01pm 11/12/2016 12:09pm Neutrophils # (Auto) 9.6 X 10^3 H 1.8-7.8 11/12/2016 12:01pm 11/12/2016 12:09pm Lymphocytes # (Auto) 1.5 X 10^3 1.0-4.0 11/12/2016 12:01pm 11/12/2016 12:09pm Monocytes # (Auto) 1.1 X 10^3 H 0.0-1.0 11/12/2016 12:01pm 11/12/2016 12: 09pm Eosinophils # (Auto) 0.2 10^3/uL 0.0-0.3 11/12/2016 12:01pm 11/12/2016 12:09pm Basophils # (Auto) 0.0 10^3/uL 0.0-0.1 11/12/2016 12:01pm 11/12/2016 12 :09pm Neutrophils % (Manual) 69 % 11/11/2016 6:05pm 11/11/2016 6:40pm Band Neutrophils 8 % 11/11/2016 6:05pm 11/11/2016 6:40pm Lymphocytes % (Manual) 13 % 11/11/2016 6:05pm 11/11/2016 6:40pm Monocytes % (Manual) 9 % 11/11/2016 6:05pm 11/11/2016 6:40pm Eosinophils % (Manual) 1 % 11/11/2016 6:05pm 11/11/2016 6:40pm Basophils % (Manual) 0 % 11/11/2016 6:05pm 11/11/2016 6:40pm Blood Morphology Comment NORMAL 11/11/2016 6:05pm 11/11/2016 6: 40pm Prothrombin Time 14.7 SEC 12.2-14.7 11/12/2016 8:02am 11/12/2016 10: 16am INR Comment 1.2 0.8-1.4 11/12/2016 8:02am 11/12/2016 10:16am INTERPRETIVE DATA SUGGESTED THERAPEUTIC RANGE FOR INR'S: VENOUS THROMBOSIS, PULMONARY EMBOLISM, OR PREVENTION OF SYSTEMIC EMBOLISM (EG. IN ATRIAL FIBRILLATION): 2.0 - 3.0 MECHANICAL PROSTHETIC HEART VALVES: 2.5 - 3.5* *NOTE: INR'S UP TO 4.5 MAY BE NECESSARY IN SELECTED GROUPS OF HIGH RISK PATIENTS. [employer] CONSENSUS CONFERENCE ON ANTITHROMBOTIC THERAPY (2000). Activated Partial Thromboplast Time 39 SEC H 24-35 11/12/2016 8:02am 10:16am Sodium Level 140 MMOL/L 135-145 11/11/2016 6:46pm 11/11/2016 7:11pm Potassium Level 3.5 MMOL/L L 3.6-5.0 11/11/2016 6:46pm 11/11/2016 7:11pm Chloride Level 108 MMOL/L H 98-107 11/11/2016 6:46pm 11/11/2016 7:11pm Carbon Dioxide Level 19 MMOL/L L 21-32 11/11/2016 6:46pm 11/11/2016 7: 11pm Anion Gap 13 MMOL/L 5-14 11/11/2016 6:46pm 11/11/2016 7:11pm Blood Urea Nitrogen 7 MG/DL 7-18 11/11/2016 6:46pm 11/11/2016 7:11pm Creatinine 0.72 MG/DL 0.60-1.30 11/11/2016 6:46pm 11/11/2016 7:11pm BUN/Creatinine Ratio 10 11/11/2016 6:46pm 11/11/2016 7:11pm Estimat Glomerular Filtration Rate > 60 11/11/2016 6:46pm 2016 7:11pm GFR INTERPRETIVE DATA UNITS FOR ESTIMATED GFR (eGFR): mL/min/1.73 M2 REFERENCE RANGE FOR ESTIMATED GFR (eGFR) eGFR NORMAL eGFR >60 MODERATELY DECREASED eGFR 30-59 SEVERLY DECREASED eGFR 15-29 KIDNEY FAILURE <15 (OR DIALYSIS) Glucose Level 72 MG/DL 70-105 11/11/2016 6:46pm 11/11/2016 7:11pm Calcium Level 9.0 MG/DL 8.5-10.1 11/11/2016 6:46pm 11/11/2016 7:11pm Vancomycin Level Trough 8.4 UG/ML L 10.0-20.0 11/12/2016 6:26pm 2016 6:57pm Microbiology Results Procedure Source Result Collection Date/Time Result Date/Time Blood Culture Peripheral, Rt Ac No growth 11/12/2016 8:02am 11/13/2016 2: 57pm Blood Culture Peripheral, Rt Ac No growth 11/12/2016 8:09am 11/13/2016 2: 57pm Surgical Culture Abscess, Breast, Left STAPHYLOCOCCUS AUREUS 11/12/2016 11: 00am 11/13/2016 4:28pm Procedures No known history of procedures. Encounters Encounter Location Arrival/Admit Date Discharge/Depart Date Attending Provider Admitted Inpatient (obs) [facility] 11/11/16 5:45pm SILAS WICK MD
--- NOTE | 2016-11-17 20:33 | Diagnostic Imaging Report ---
Left breast ultrasound. INDICATION: Follow-up drain placement. FINDINGS: Area of abscess at the 6 o'clock zone was examined and demonstrates significant improvement with remaining hypoechoic tissue probably representing the area of inflammation and there is some shadowing from the drainage tube. IMPRESSION: No significant remaining fluid collection is seen. The drainage catheter was kept in place at this time since it was still draining purulent material. Dictated by: Dictated on workstation # [id number]
== END ==
LOC: RAD 13:45
PROVIDERS: ATTEND Obstetrics & Gynecology
DX: O91.22 Nonpurulent mastitis associated with the puerperium (principal)
CPT/HCPCS: 76641

== ENCOUNTER → 2016-11-19 | Outpatient (CLI) | payer OTHER ==
--- OUTSIDE RECORDS SUMMARY | 2016-11-19 08:58 | XMS REPORT | Continuity of Care Document ---
Author Author [facility] Organization [facility] Address Unknown Phone Unavailable Care Team Providers Care Can Sterilizer Name Role Phone SILAS WICK MD PCP Insurance Providers Payer Name Policy Number Subscriber Name Relationship UMR [id number] Erika Krishnamurthy Self / Same As Patient [...] SILAS WICK MD (Unspecified) - 11/20/16 Address: [address] [phone] Reason(s) for Referral: Follow-Up Appointment with Dr. [...] - 99.5) 11/13/2016 3:30pm Temperature (Calculated Celsius) 37.55403 degrees C (36.4 - 37.5) 11/13/2016 3:30pm [...] 4.00 inches 11/11/2016 6:16pm Height (Calculated Centimeters) 162.982231 cm 11/11/2016 6:16pm Weight (Pounds) 145 pounds 11/11/2016 6:16pm Weight (Ounces) 0.0 oz 11/11/2016 6:16pm Weight (Calculated Grams) 37705.89 gm 11/11/2016 6:16pm Weight (Calculated Kilograms) 65.041773 kilograms 11/11/2016 6:16pm Calculated BMI 24.9 11/11/2016 [...] SELECTED GROUPS OF HIGH RISK PATIENTS. [employer] CONSENSUS CONFERENCE ON [...] Date Attending Provider Admitted Inpatient (obs) [facility] 11/11/16 5:45pm SILAS WICK MD
--- NOTE | 2016-11-19 15:59 | Diagnostic Imaging Report ---
EXAMINATION: Left breast ultrasound. INDICATION: Left breast abscess followup. FINDINGS: The site of the abscess is again examined with no fluid collection identified. Slightly heterogenous tissue is probably from remaining inflammation/healing. The tube is seen. The abscess area is around the 6 o'clock zone. IMPRESSION: No remaining sizable fluid collection is seen. Dictated by: Dictated on workstation # [id number]
== END ==
LOC: RAD 08:55
DX: O91.22 Nonpurulent mastitis associated with the puerperium (principal)
CPT/HCPCS: 76641

== ENCOUNTER 2018-11-26 09:30 | Inpatient (IN) | payer BC, OTHER ==
[~2018-11-26] VITALS: Ht 162.6 cm; Wt 76.7 kg
[2018-11-26] VITALS (30 sets, daily range): BP systolic 103–131; BP diastolic 59–86
--- NOTE | 2018-11-26 09:40 | NUR ---
Arrived to unit ambulates self accompanied by for induction of labor. Wt obtained and to room 319. gowned and to bed oriented to room, call light and surroundings. ice water given. plan of care reviewed with pt and . questions answered.
[2018-11-26] MEDS ORDERED: D5 LR IV SOLUTION 1,000 ML IV SCH (10:39)
[2018-11-26] MEDS ORDERED: D5 LR IV SOLUTION 1,000 ML IV ONE (10:47)
[2018-11-26 10:50] LABS: BASOPHILS % (AUTO) 0 % (0-10); EOSINOPHILS % (AUTO) 0 % (0-10); HEMATOCRIT 36 % (35-52); HEMOGLOBIN 11.8 G/DL (11.5-16.0); LYMPHOCYTES % (AUTO) 16 % (12-44); MEAN CORPUSCULAR HEMOGLOBIN 30 PG (25-34); MEAN CORPUSCULAR HGB CONC 33 G/DL (32-36); MEAN CORPUSCULAR VOLUME 91 FL (80-99); MEAN PLATELET VOLUME 9.2 FL (7.4-10.4); MONOCYTES # (AUTO) 0.6 X 10^3 (0.0-1.0); MONOCYTES % (AUTO) 5 % (0-12); NEUTROPHILS # (AUTO) 9.9 X 10^3 (1.8-7.8); NEUTROPHILS % (AUTO) 79 % (42-75); PLATELET COUNT 179 10^3/uL (130-400); RED CELL DISTRIBUTION WIDTH 13.8 % (10.0-14.5); WHITE BLOOD COUNT 12.5 10^3/uL (4.3-11.0)
--- NOTE | 2018-11-26 10:50 | NUR ---
Dr Wick called and notified of fhr pattern, movement with tachycardia noted (accels). Discussed with Dr Wick fhr baseline could be 145-150 with accels in to 170-180s with persistent movement or baseline of 170-180's with variable decels to 150's. pt repositioned to left side lying position
[2018-11-26] MEDS ORDERED: OXYTOCIN/NORMAL SALINE 500 ML IV ONE (12:17)
[2018-11-26] MEDS ORDERED: OXYTOCIN/NORMAL SALINE 500 ML IV SCH ×2 (12:26→19:29)
[2018-11-26] MEDS ORDERED: LACTATED RINGERS 1,000 ML IV SCH ×2 (12:30→13:30)
[2018-11-26] MEDS ORDERED: IBUP-1780 PO (12:33)
[2018-11-26] MEDS ORDERED: OXYC1TAB87 PO (12:33)
[2018-11-26] MEDS ORDERED: DOCU-143 PO (12:33)
--- NOTE | 2018-11-26 12:34 | Discharge Instructions ---
Discharge Instructions Discharge Medications New, Converted or Re-Newed RX: RX on Chart Patient Instructions Patient Instructions: As directed Return to The Hospital For: DIRECTED Activity & Diet Discharge Diet: No Restrictions Activity as Tolerated: No Orders-Post D/C & Referrals Follow Up Appt: Call to make follow up appt. for patient in 4 weeks. Activity Per routine post vaginal delivery instructions. Diet as tolerated Patient may shower or tub bathe as desired. SILAS MELO MD Nov 26, 2018 12:34
[2018-11-26] MEDS ORDERED: SUFENTA 0.6MCG/ML BUPIVA 0.125 100 ML ONE (12:44)
[2018-11-26] MEDS ORDERED: NALOXONE 0.4 MG/ML 1 ML (NARCAN) VIAL IV PRN ×2 (13:30)
[2018-11-26] MEDS ORDERED: METOCLOPRAMIDE INJ 10 MG/2 ML (REGLAN) IV PRN (13:30)
[2018-11-26] MEDS ORDERED: ONDANSETRON 4 MG/2 ML (SDV) Z0FRAN IV PRN (13:30)
[2018-11-26] MEDS ORDERED: EPIDURAL (SUFENTA 0.6MCG/ML BUPIVA 0.125%) 100 ML BAG EPI SCH (13:30)
[2018-11-26] MEDS ORDERED: diphenhydrAMINE 50 MG/ML INJ (BENADRYL) IV PRN (13:30)
--- NOTE | 2018-11-26 13:40 | NUR ---
Corrected note from labor flowsheet vag exam at 1340 3.5cms, 60%, -1. 1350 Pitocin @ 8mu/min.
[2018-11-26] MEDS ORDERED: CATHETER FLUSH 10 ML SYR IV SCH (14:00)
[2018-11-26] MEDS ORDERED: LIDOCAINE/EPI 2% 1:200,00 (XYLOCAINE) 10 ML VIAL ONE ×2 (16:04→16:06)
--- NOTE | 2018-11-26 16:45 | NUR ---
1645 FF @ u/3. Light rubra flow. on mom's chest. Good bonding with parents. 1655 Epidural Dc'd. 50.4 mls used per pump history with no boluses given. 1700 FF @ u/3. Light rubra flow. Denies pain. 1715 FF @ u/2. breast feeding. D5LR fluids completed and stopped. 1730 FF @ u/2. Light to moderate rubra flow. continues to nurse. Mom stated that she nursed her 2 year for 17 months. 1745 FF @ u/2. Moderate rubra flow. VSS. Perineum intact. Breast soft and non tender. Denies pain. 1815 FF @ u/2. Moderate rubra flow. Clare care done with pad change. 1845 FF @ U/2. Recovery completed. Daughter and grandparents here. Pt desires to not move to [facility] at this time.
[2018-11-26] MEDS ORDERED: TETANUS,DIPTH,PERTUSS P/F (BOOSTRIX) 0.5 ML VIAL IM ONE (19:30)
[2018-11-26] MEDS ORDERED: MEASLES,MUMPS,RUBELLA 1 EA INJ SC ONE (19:30)
[2018-11-26] MEDS ORDERED: ONDANSETRON 4 MG/2 ML (SDV) Z0FRAN IVP PRN (19:30)
[2018-11-26] MEDS ORDERED: BENZOCAINE/MENTHOL (DERMOPLAST) 56 ML CAN TP PRN (19:30)
[2018-11-26] MEDS ORDERED: KETOROLAC 30 MG/ML VIAL IV SCH (19:30)
--- NOTE | 2018-11-26 20:00 | NUR ---
PT'S FAMILY HAS LEFT. UP TO BATHROOM, VOIDED, AND PERICARE COMPLETED. TRANSFERRED TO ROOM AT THIS TIME.
--- NOTE | 2018-11-26 20:15 | NUR ---
PT C/O INCREASED CRAMPING AND PERINEAL ACHING. TORADOL ADMINISTERED AT THIS TIME. DENIES ANY FURTHER NEEDS AT THIS TIME.
[2018-11-26] MEDS: DOCUSATE SODIUM 100 MG (COLACE) CAP PO SCH (20:18)
--- NOTE | 2018-11-27 | NUR ---
PT SITTING UP HOLDING INFANT. STATES IS GOING TO FEED IN 10-15 MIN. IV REMOVED AT THIS TIME. Addendum: 11/27/18 at 0644 by JANNETTE JACOBS RN WRONG TIME. SHOULD BE 0600
--- NOTE | 2018-11-27 02:41 | OPERATIVE REPORT ---
DATE OF SERVICE: 11/26/2018 DELIVERY NOTE The patient delivered by a term spontaneous vaginal delivery a viable female with Apgars of 9 and 9 at 1 and 5 minutes respectively. Weight is 7 POUNDS and a cord blood pH of 7.28 and a time of 16:15. The delivered over midline episiotomy that was performed as the perineum was beginning to tear as there was insufficient laxity of the perineal body to allow delivery. A cystic mass was noted in the posterior vaginal floor as the head descended. the episiotomy allowed access to the rectovaginal space and to the large cystic mass. The episiotomy was performed avoiding the mass and then delivery was accomplished fairly promptly. The was bulb suctioned on delivery of the head and again on completion of delivery. The umbilical cord was quite short. It was doubly clamped, the father cut the cord, the baby was passed to mom's abdomen. The baby had pulse of over 100 throughout the process of delivery. The baby had excellent tone and reflexes, was quickly pink, had a lusty cry, moved all extremities. The placenta was delivered spontaneously [place]. It was normal with a 3- vessel cord. Again, the cord was quite short. The rectum, perineum, vagina and posterior fourchette and cervix were examined and found intact except for the midline episiotomy with some tearing and shredding of the hymenal ring posteriorly. There was a 2 x 3 multilocular cystic mass occupying the rectovaginal septum. This mass was partially exposed by the episiotomy and to some degree by the tearing that occurred. The mass was then carefully resected to keep it intact and that mass was sent to pathology for permanent section. Dissection was carried through the posterior vaginal floor and vaginal septum down almost to the rectum and then over to the right paravaginal, pararectal space and to allow complete excision of the mass. The deep area was then closed with suture of 3-0 Vicryl Rapide. The episiotomy itself was repaired with a suture of 3-0 Vicryl Rapide in the usual manner completely obliterating the rectovaginal space and restoring the perineal body and obliterating the defect where the mass was removed. The vaginal mucosa was reapproximated with that suture as well as was the perineal skin. The suture was tied at the hymenal ring. Digital rectal exam confirmed no stricture or stenosis of the rectum and no sutures into or through the rectal mucosa. Sponge and needle counts were correct. Estimated blood loss was around 150 mL. The patient tolerated the delivery and the repair very well and remained in the LDR for recovery. The baby remained with the mom. Job ID: [id number] DocumentID: [id number] Dictated Date: 11/26/2018 16:48:53 Big Data Developer Date: 11/27/2018 02:40:43 Dictated By: SILAS MELO MD MTDD
[2018-11-27] MEDS ORDERED: IBUPROFEN 800 MG (MOTRIN) TAB PO ONE ×3 (02:49→15:22)
[2018-11-27] MEDS: IBUPROFEN 800 MG (MOTRIN) TAB PO SCH ×4 (02:55→21:24)
--- NOTE | 2018-11-27 02:55 | NUR ---
MOTRIN ADMINISTERED. VSS. PT DENIES ANY NEEDS OR C/O'S.
[2018-11-27 03:00] VITALS: BP 116/90
--- NOTE | 2018-11-27 07:15 | NUR ---
REPORT TO NEXT SHIFT.
[2018-11-27 08:54] VITALS: BP 116/75
[2018-11-27] MEDS: DOCUSATE SODIUM 100 MG (COLACE) CAP PO SCH ×2 (08:56→21:24)
--- NOTE | 2018-11-27 09:00 | NUR ---
VS, assessment completed. Shower set up for pt at this time. Motrin and colace given. No s/s of distress noted. Pt denies further needs or complaints.
--- NOTE | 2018-11-27 10:30 | NUR ---
Dr. Wick here to see pt. Discharge orders for tomorrow AM, may use for this evening if pt wishes to go. No other orders rec'd.
--- NOTE | 2018-11-27 13:00 | NUR ---
Report to Jose Marti RN
[2018-11-27 13:15] VITALS: BP 113/76
[2018-11-27] MEDS: oxyCODONE/APAP 5/325MG (PERCOCET 5) TABLET PO PRN ×2 (13:40→19:45)
--- NOTE | 2018-11-27 13:41 | NUR ---
INFANT. PT STATES SHE HAD THE TDAP DURING THIS . PERCOCET 5/325 2 TABS P.O. FOR C/O PERINEAL PAIN. WARM BLANKET TO ABDOMEN FOR C/O CRAMPING. WILL MAKE AN ICE PACK FOR SORE BOTTOM.
[2018-11-27] MEDS ORDERED: WITCH HAZEL(TUCKS) 40 EA JAR TOP PRN (13:45)
--- NOTE | 2018-11-27 15:30 | NUR ---
ROUTINE MOTRIN GIVEN. STATES ICE PACK AND PERCOCET HAVE DECREASED HER PAIN TO 4/7. HOLDING AT THIS TIME.
--- NOTE | 2018-11-27 17:20 | NUR ---
INFANT TO NURSERY FOR 24 HOUR SCREENING.
--- NOTE | 2018-11-27 18:25 | NUR ---
PARENTS INFORMED OF BEING ABLE TO BE DISMISSED IF MOM WANTING TO LEAVE TONIGHT. FOB WANTING TO GO BUT MOM UNSURE. WILL DISCUSS AND LET THIS RN KNOW.
--- NOTE | 2018-11-27 18:45 | NUR ---
DECISION TO STAY UNTIL MORNING PER PT AND SPOUSE.
[2018-11-27 21:24] VITALS: BP 106/74
--- NOTE | 2018-11-27 23:52 | Anesthesia-Regional Post-Op ---
Regional Patient Condition Mental Status: Alert, Oriented x3 Circulation: Same as Pre-Op Headache: Absent Sensation: Full Recovery Motor Block: Absent Post Op Complications Complications None Follow Up Care/Instructions Patient Instructions None needed. Anesthesia/Patient Condition Patient is doing well, no complaints, stable vital signs, no apparent adverse anesthesia problems. No complications reported per nursing. LETICIA FRIEDMAN CRNA Nov 27, 2018 23:52
[2018-11-28 03:09] VITALS: BP 113/77
[2018-11-28] MEDS: IBUPROFEN 800 MG (MOTRIN) TAB PO SCH ×2 (03:09→08:33)
[2018-11-28 08:30] VITALS: BP 118/77
--- NOTE | 2018-11-28 08:30 | NUR ---
A.M. ASSESSMENT COMPLETED. VSS. PLANS TO GO HOME TODAY.
[2018-11-28] MEDS: DOCUSATE SODIUM 100 MG (COLACE) CAP PO SCH (08:33)
--- NOTE | 2018-11-28 09:30 | NUR ---
UP TO THE SHOWER. MOVES WELL.
--- NOTE | 2018-11-28 09:39 | Progress Note-Standard ---
Standard Progress Note Progress Notes/Assess & Plan Date Seen by a Provider: Nov 28, 2018 Time Seen by a Provider: 09:38 Progress/Assessment & Plan Patient without complaint. She is ambulating, voiding, tolerating oral intake well has good pain control. Vital Signs Date Time Temp Pulse Resp B/P (MAP) Pulse Ox O2 Delivery O2 Flow Rate FiO2 11/28/18 03:09 98.3 85 18 113/77 (89) 97 11/27/18 21:24 98.4 94 18 106/74 (85) 99 11/27/18 13:15 98.2 87 18 113/76 (88) 99 Room Air Vital signs are stable. Patient is afebrile. Fundus is firm below the umbilicus and nontender. Extremities show no clubbing or cyanosis. Homans sign. Assessment and plan day number 2 status post term spontaneous vaginal delivery doing well. Plan is for discharge home with follow-up in clinic Final Diagnosis Term spontaneous vaginal delivery at 38 weeks gestation SILAS MELO MD Nov 28, 2018 09:39
--- NOTE | 2018-11-28 09:42 | Progress Note-Standard ---
Standard Progress Note Progress Notes/Assess & Plan Date Seen by a Provider: Nov 27, 2018 Time Seen by a Provider: 09:30 Progress/Assessment & Plan Patient is without complaint. She is ambulating, voiding, tolerating oral intake well has good pain control. Patient denies chest pain, denies shortness of breath, denies nausea vomiting, and denies headache. Vital signs are reviewed and are stable. Patient is afebrile. Fundus is firm below the umbilicus and nontender. Extremities show no clubbing cyanosis. There is no Homans sign. Assessment and plan day number 1 status post vaginal delivery at 38 weeks gestation doing well. Plan for discharge home when patient request either today or tomorrow. . . . . . Patient without complaint. She is ambulating, voiding, tolerating oral intake well has good pain control. Vital Signs Date Time Temp Pulse Resp B/P (MAP) Pulse Ox O2 Delivery O2 Flow Rate FiO2 11/28/18 03:09 98.3 85 18 113/77 (89) 97 11/27/18 21:24 98.4 94 18 106/74 (85) 99 11/27/18 13:15 98.2 87 18 113/76 (88) 99 Room Air Vital signs are stable. Patient is afebrile. Fundus is firm below the umbilicus and nontender. Extremities show no clubbing or cyanosis. Homans sign. Assessment and plan day number 2 status post term spontaneous vaginal delivery doing well. Plan is for discharge home with follow-up in clinic SILAS MELO MD Nov 28, 2018 09:42
--- NOTE | 2018-11-28 10:00 | NUR ---
DR. MELO HERE TO SEE PT.
--- NOTE | 2018-11-28 12:45 | NUR ---
DR. VELAZQUEZ HERE TO SEE INFANT. PLAN FOR DISCHARGE.
[2018-11-28 14:15] VITALS: BP 118/77
--- NOTE | 2018-11-28 14:15 | NUR ---
DISCHARGE INSTRUCTIONS REVIEWED WITH PT AND COPY GIVEN. RXS GIVEN. STATES UNDERSTANDING OF ALL INSTRUCTIONS AND NEED TO F/U SCHEDULED AND NEEDED. DISMISSED AMB FROM [facility] WITH IN STABLE CONDITION TO [facility] BY SPOUSE AND REESE SEYMOUR.
--- NOTE | 2018-11-30 15:41 | HISTORY AND PHYSICAL ---
DATE OF SERVICE: HISTORY OF PRESENT ILLNESS: The patient is a 28-year-old G2, A1 white female with an EDC of 12/09/2018, admitted on 11/26/2018 secondary to early labor and nonreassuring heart rate pattern and oligohydramnios. The patient was admitted. Amniotomy was performed. The patient was allowed to labor and while heart rate strip at that time was questionable, it was generally reassuring and the patient labored successfully. The GBS culture was negative. At the time of admission, she denied rupture of membranes or bleeding. ALLERGIES: None. MEDICATIONS: vitamins. Past medical, surgical and obstetrical history are as per the antepartum record record. PHYSICAL EXAMINATION: HEENT: Normal. NECK: Supple, no lymphadenopathy, no thyromegaly. ABDOMEN: Gravid, soft, nontender, nondistended. EXTREMITIES: Show no clubbing or cyanosis. There is no Homans' sign. PELVIC EXAM: On 11/23 showed a cervix 2 cm dilated, 50% effaced, -1 station, very soft and very posterior. The patient was stable at that point on admission. monitor showed irregular contractions and a heart rate pattern initially in the 180s, but after amniotomy was performed, the heart rate came back down to around 140s to 160s with a reactive pattern. Labwork is in the chart. ASSESSMENT AND PLAN: Term at 38 weeks' gestation. The patient with suspicious testing and oligohydramnios, admitted for labor induction with anticipation for vaginal delivery with plans and preparations in place for if needed. Job ID: [id number] DocumentID: [id number] Dictated Date: 11/30/2018 13:24:40 Dye Colorist Formulator Date: 11/30/2018 14:14:24 Dictated By: SILAS MELO MD [facility]
== END 2018-11-28 14:15 | disposition home or self-care (01) | DRG 768 ==
LOC: LDRP 09:50
PROVIDERS: ADMIT Obstetrics & Gynecology; ATTEND Obstetrics & Gynecology
PROC: 10E0XZZ Delivery of Products of Conception, External Approach (ICD-10-PCS; principal; 2018-11-26)
PROC: 0W8NXZZ Division of Female Perineum, External Approach (ICD-10-PCS; 2018-11-26)
PROC: 0UBG7ZX Excision of Vagina, Via Natural or Artificial Opening, Diagnostic (ICD-10-PCS; 2018-11-26)
DX: O41.03X0 Oligohydramnios, third trimester, not applicable or unspecified (principal); O70.0 First degree perineal laceration during delivery; O26.893 Other specified pregnancy related conditions, third trimester; N89.8 Other specified noninflammatory disorders of vagina; O99.62 Diseases of the digestive system complicating childbirth; K21.9 Gastro-esophageal reflux disease without esophagitis; Z37.0 Single live birth; Z3A.38 38 weeks gestation of pregnancy
CPT/HCPCS: 36415; 85025; 86850; 86900; 86901; 88305; 88307

== ENCOUNTER → 2021-09-02 | Outpatient (CLI) | payer BC ==
[~2021-09-02] MED LIST changes: +DOCU-143 PO; -METO10TA3 PO; +MTC10T PO; -OXYC-465 PO; +OXYC-556 PO; +OXYC1TAB87 PO
== END ==
LOC: CARD 15:00
PROVIDERS: ATTEND Internal Medicine Cardiovascular Disease
DX: I07.1 Rheumatic tricuspid insufficiency (principal)
CPT/HCPCS: 93306

== ENCOUNTER → 2021-10-03 | Outpatient (CLI) | payer BC ==
[~2021-10-03] MED LIST changes: +CATHETER FLUSH 10 ML SYR IV PRN; +HOLD METFORMIN - RECEIVED CONTRAST 20 ML VIAL IV SCH; +IOHEXOL 350 MG/ML 100 ML (OMNIPAQUE 350) VIAL IV ONE; +NS 100 ML (IVPB) BAG IV ONE
--- NOTE | 2021-10-03 11:41 | Diagnostic Imaging Report ---
EXAMINATION: CT angiography of the chest. TECHNIQUE: Contrast enhanced thin section helical images were obtained through the chest with intravenous contrast timed for the optimal opacification of the arterial structures per CTA protocol. Post-processing, reconstructions and interpretation of angiographic images of the vessels was performed. 3D MIP reconstructions were performed and reviewed. All CT scans use one or more of the following dose optimizing techniques: automated exposure control, MA and/or KvP adjustment based on a patient size and exam type, or iterative reconstruction. HISTORY: Left-sided chest pain. COMPARISON: None available. FINDINGS: Vascular: Suboptimal evaluation of the pulmonary artery secondary to bolus timing. No obvious filling defect is seen within the main pulmonary arteries. The thoracic aorta is normal in caliber. Thyroid: The thyroid is normal. Mediastinum: Heart size is normal without significant pericardial effusion. No suspicious lymphadenopathy. Lungs and airways: The lungs are clear without consolidation, pleural effusion, or pneumothorax. There is a 0.3 cm left lower lobe subpleural pulmonary nodule. The airways are normal. Upper abdomen: The subphrenic structures are normal. Musculoskeletal: No suspicious osseous lesion or compression fracture. IMPRESSION: 1. Suboptimal evaluation for pulmonary embolus secondary to bolus timing. No obvious filling defects are seen within the main pulmonary arteries. 2. No other acute abnormality in the chest. Dictated by: Dictated on workstation # [id number]
--- NOTE | 2021-10-03 11:44 | Cardiology Stress Test Report ---
Stress Test Report Date of Procedure/Referring: Date of Procedure: Oct 03, 2021 PCP Neymar Bojorquez Jr, MD Admitting Physician Nelson Manuel MD Indications: Chest pain. Baseline EKG: Baseline EKG: Sinus rhythm with possible old septal myocardial infarction. Summary/Conclusion: PROCEDURE: The patient was exercised for a total of 7 minutes and 26 seconds of the standard Derrell protocol achieving a maximum MET level of 8.9. The resting heart rate was 83 bpm and the peak heart rate was 175 bpm which represents 93% of the maximum predicted heart rate. The resting blood pressure was 127/80 mmHg and the peak blood pressure was 170/77 mmHg. This represents a normal heart rate and blood pressure response to exercise. The test was stopped due to fatigue. There was no exercise-induced chest discomfort. There were no exercise-induced arrhythmias. There were no significant exercise-induced electrocardiogram changes. The patient exhibited good exercise capacity for age. IMPRESSION: 1. Normal heart rate and blood pressure response to exercise. 2. There was no exercise-induced chest discomfort, arrhythmias, or electrocardiogram changes during the test. 3. The patient exhibited good exercise capacity for age at 7 minutes and 26 s econds of the Derrell protocol. 4. This is a negative exercise treadmill test representing a low risk for coronary ischemic events. Certain portions of this document may have been dictated utilizing voice recognition technology. Inherent to this technology, typographical and grammatical errors may exist. As much as I am diligent to identify and correct these mistakes, some errors may remain in the document. NEYMAR BOJORQUEZ JR, MD Oct 03, 2021 11:44
== END ==
LOC: RAD 10:00
PROVIDERS: ATTEND Internal Medicine Cardiovascular Disease
DX: R07.9 Chest pain, unspecified (principal)
CPT/HCPCS: 71275; 93017

== ENCOUNTER 2021-11-22 05:32 | Outpatient (RCR) | payer BC ==
[~2021-11-22] VITALS: Ht 162.6 cm; Wt 71.3 kg
[~2021-11-22 05:32] MED LIST changes: +5-HY100C3 PO; +BUPR300T98 PO; +BUSP10TA95 PO; -CATHETER FLUSH 10 ML SYR IV PRN; +CHOL500044 PO; +CYAN1TAB26 PO; -HOLD METFORMIN - RECEIVED CONTRAST 20 ML VIAL IV SCH; -IOHEXOL 350 MG/ML 100 ML (OMNIPAQUE 350) VIAL IV ONE; -NS 100 ML (IVPB) BAG IV ONE
== END 2021-11-22 10:54 | disposition home or self-care (01) ==
LOC: PREOP 05:32
PROVIDERS: ATTEND Surgery
DX: Z01.812 Encounter for preprocedural laboratory examination (principal); R19.4 Change in bowel habit; Z20.822 Contact with and (suspected) exposure to COVID-19
CPT/HCPCS: 87635

== ENCOUNTER 2021-11-25 09:04 | Day surgery (SDC) | payer BC ==
[~2021-11-25] VITALS: Ht 162.6 cm; Wt 71.3 kg
[2021-11-25] MEDS ORDERED: LACTATED RINGERS 1,000 ML IV STA (09:09)
[2021-11-25] MEDS ORDERED: HURRICAINE EXT TUBE (BENZOCAINE) XX PRN (09:15)
[2021-11-25] MEDS ORDERED: LACTATED RINGERS 1,000 ML IV ONE (09:15)
--- NOTE | 2021-11-25 09:19 | Progress Note-Pre Operative ---
Pre-Operative Progress Note H&P Reviewed The H&P was reviewed, patient examined and no changes noted. Time Seen by Provider: 09:17 Date H&P Reviewed: Nov 25, 2021 Time H&P Reviewed: 09:17 Pre-Operative Diagnosis: change in bowel habits, epigastric pain SVETA MURRAY DO Nov 25, 2021 09:19
[2021-11-25 09:30] VITALS: BP 124/89
[2021-11-25] MEDS ORDERED: MIDAZOLAM 2 MG/2 ML (VERSED) VIAL ONE (10:39)
[2021-11-25] MEDS ORDERED: PROPOFOL INJECTION 50 ML IV ONE (10:39)
[2021-11-25 11:25] VITALS: BP 105/63
--- NOTE | 2021-11-25 11:29 | Progress Note-Post Operative ---
Post-Operative Progess Note Surgeon (s)/Computer Peripheral Equipment Operator (s) Surgeon SVETA MURRAY DO Computer Peripheral Equipment Operator: ROSARIO Montero Pre-Operative Diagnosis change in bowel habits, epigastric pain Post-Operative Diagnosis Gastritis Int hemorrhoids Procedure & Operative Findings Date of Procedure 11/25/21 Procedure Performed/Findings EGD with bx Colonoscopy with bx PROCEDURE NOTE: After informed consent was obtained, the patient was brought to the endoscopy suite, placed in bed in left lateral decubitus position. She was administered IV sedation by the FIELD ARTILLERY TARGETING TECHNICIAN who then monitored vitals the entire time, heart rate, blood pressure and pulse ox and the scope was inserted down the mouth through the esophagus into the stomach. Pushed into the stomach and past the antrum into the duodenum. Duodenum looked good. Pulled back and did a biopsy of antrum and then noted some moderate gastritis; took two biopsies of the body and this gastritis. Then retroflexed the scope, did not see a hiatal hernia and t hen pulled the scope into the GE junction. Then did a biopsy of the GE junction. Pushed the scope back into the stomach, suctioned all the air out of the stomach. At this point pulled the scope up the esophagus and out the mouth. Switched camera, switched gloves, went down below and started the colonoscopy. Pushed all the way in to about 140 cm to get all the way to cecum. Took a picture of the appendiceal orifice and then able to get into the terminal ileum and did a biopsy. Next started to slowly withdrew the scope, insufflating to look circumferentially at the agosto starting in the cecum, up the ascending colon to the hepatic flexure, then down the transverse colon, splenic flexure, into the descending colon, down into the sigmoid and finally into the rectum, retroflexed in the rectal vault and saw some minimal internal hemorrhoids and took a picture of this. The patient tolerated the procedure and she recovered in the endoscopy suite. Anesthesia Type IV sedation by FIELD ARTILLERY TARGETING TECHNICIAN Estimated Blood Loss Estimated blood loss (mL): scant Specimens/Packing Specimens Removed antral bx Body of stomach bx GE jxn bx TI bx SVETA MURRAY DO Nov 25, 2021 11:29
[2021-11-25 11:30] VITALS: BP 106/62
[2021-11-25 11:35] VITALS: BP_SYST 110; BP_SYST 115; BP_DIAS 71; BP_DIAS 72
--- NOTE | 2021-11-25 11:48 | Endoscopy Discharge Instruct ---
Endo Procedure/Findings Findings 1.: Gastritis 2.: Internal Hemorrhoids Discharge Instructions - Activity: You might feel a little sleepy until tomorrow. This is due to the medicine you received to relax you. Until tomorrow, you should: NOT drive a car, operate machinery or power tools. NOT drink any alcoholic beverages. NOT make any important decisions or sign importortant papers. Do not return to work until tomorrow, unless otherwise instructed. Resume previous activities tomorrow. Diet: Start by taking liquids. If you tolerate liquids, advance to solid food. 1.: EGD in 3 years 2.: Colonscopy in 10 years Notify Physician - If you experience excessive bleeding, unusual abdominal pain, fever, or chest pain, contact your doctor immediately. SVETA MURRAY DO Nov 25, 2021 11:48
--- NOTE | 2021-11-25 12:32 | Anesthesia-General Post-Op ---
MAC Patient Condition Mental Status/LOC: Same as Preop Cardiovascular: Satisfactory Nausea/Vomiting: Absent Respiratory: Satisfactory Pain: Controlled Complications: Absent Post Op Complications Complications None Follow Up Care/Instructions Patient Instructions None needed. Anesthesiology Discharge Order Discharge Order Patient is doing well, no complaints, stable vital signs, no apparent adverse anesthesia problems. No complications reported per nursing. LETICIA FRIEDMAN CRNA Nov 25, 2021 12:32
== END 2021-11-25 12:07 | disposition home or self-care (01) ==
LOC: ENDO 09:04
PROVIDERS: ATTEND Surgery
DX: K29.70 Gastritis, unspecified, without bleeding (principal); K20.90 Esophagitis, unspecified without bleeding; K64.8 Other hemorrhoids; R07.89 Other chest pain; F32.A Depression, unspecified; Z87.891 Personal history of nicotine dependence; Z79.899 Other long term (current) drug therapy; Z86.16 Personal history of COVID-19

== ENCOUNTER → 2022-09-22 | Outpatient (CLI) | payer BC ==
[~2022-09-22] MED LIST changes: +ACET-11 PO; -ACET1TAB43 PO
== END ==
LOC: CARD 10:00
PROVIDERS: ATTEND Internal Medicine Cardiovascular Disease
DX: I07.1 Rheumatic tricuspid insufficiency (principal)
CPT/HCPCS: 93306

== ENCOUNTER → 2023-04-09 | Outpatient (CLI) | payer BC ==
[~2023-04-09] MED LIST changes: +CATHETER FLUSH 10 ML SYR IV PRN; +HOLD METFORMIN - RECEIVED CONTRAST 20 ML VIAL IV SCH; +IOHEXOL 350 MG/ML 100 ML (OMNIPAQUE 350) VIAL IV ONE; +NS 100 ML (IVPB) BAG IV ONE
--- NOTE | 2023-04-09 11:16 | Diagnostic Imaging Report ---
PROCEDURE: CT abdomen and pelvis with contrast. TECHNIQUE: Multiple contiguous axial images were obtained through the abdomen and pelvis after administration of intravenous contrast. Auto Exposure Controls were utilized during the CT exam to meet ALARA standards for radiation dose reduction. All CT scans use one or more of the following dose optimizing techniques: automated exposure control, MA and/or KvP adjustment based on patient size and exam type or iterative reconstruction. INDICATION: Right-sided pelvic pressure. No prior studies are available for comparison. FINDINGS: The lung bases are clear. The liver and gallbladder are unremarkable. The pancreas and spleen are unremarkable. No adrenal mass is identified. Kidneys are unremarkable. Aorta is nonaneurysmal. Small and large bowel loops are normal caliber. There is no obstruction. There is moderate amount of stool in the colon. Uterus and bladder are unremarkable. There is a small right ovarian cyst measuring 17 mm. No free fluid is detected. No inflammatory changes are seen. IMPRESSION: Small right ovarian cyst. Study is otherwise unremarkable. Dictated by: Dictated on workstation # [id number]
== END ==
LOC: RAD 10:20
PROVIDERS: ATTEND Family Medicine
DX: N83.201 Unspecified ovarian cyst, right side (principal)
CPT/HCPCS: 74177